=== PATIENT | female | born 1990 | race Two or more races ===

== ENCOUNTER 2017-04-11 15:44 | Emergency (ER) | payer MEDICAID ==
[~2017-04-11] VITALS: Ht 160 cm; Wt 83.9 kg
[2017-04-11 15:48] VITALS: BP 114/77
== END 2017-04-11 16:51 | disposition home or self-care (01) ==
LOC: ER 15:47
DX: F10.129 Alcohol abuse with intoxication, unspecified (principal); F32.9 Major depressive disorder, single episode, unspecified
CPT/HCPCS: A4606; Z7610